=== PATIENT | male | born 1960 ===

== ENCOUNTER 2024-08-09 11:07 | Outpatient (CLI) | payer SELFPAY ==
--- NOTE | 2024-08-09 11:20 | CT_ITS ---
WS: [id number] CT CALCIUM SCORE REASON FOR VISIT: FAMILY HX OF SUDDEN CARDIA ; Coronary artery disease risk assessment COMPARISON: None TECHNIQUE: Noncontrast coronary CT in combination with quantitative analysis performed on a separate workstation were used to determine CACS (Agatston score) TOTAL EXAM DOSE: 77.76 mGy.cm ECG GATING: Prospective SCAN RANGE: Pulmonary artery bifurcation to Inferior aspect of heart COMPLICATIONS: None FINDINGS: Technical Quality/Examination Quality: Good Limitation: None OVERALL SCORES Total calcium score: 72 Total volume score: 78 mm3 Percentile: 25th-50th% ARTERY SCORES Left main coronary artery: 0 Left anterior descending artery: 57 Left circumflex artery: 4 Right coronary artery: 11 OTHER FINDINGS: Tiny esophageal hiatal hernia. Mediastinum: Normal. Thoracic aorta: Normal. Lungs: Normal. Upper Abdomen: Normal. MINIMAL: 1-10 MILD: 11-100 MODERATE: 101-400 SEVERE:>400 CT/CT heart w calcium score 24856 IMPRESSION: Total calcium score of 72 is between the 25th and 50th percentile f or males between the ages of 60 and 64 GRADING OF CORONARY ARTERY DISEASE (BASED ON TOTAL CALCIUM SCORE) NO EVIDENCE OF CAD: 0 calcium score
== END 2024-08-09 11:08 | disposition home or self-care (01) ==
LOC: RAD 11:09
PROVIDERS: Visit Provider Family Medicine
DX: E11.9 Type 2 diabetes mellitus without complications (principal); Z82.41 Family history of sudden cardiac death
CPT/HCPCS: 75571